=== PATIENT | female | born 1945 | race Two or more races ===

== ENCOUNTER 2025-05-11 11:42 | Emergency (ER) | payer OTHER ==
[~2025-05-11] VITALS: Ht 165.1 cm; Wt 64.9 kg
[~2025-05-11 11:42] MED LIST: AVAPRO150 MG PO; LOPRESSOR25 MG PO; NABUMETONE500 MG PO; PERCOCET 5/3251 TAB PO; SYNTHROID50 MCG PO
[2025-05-11] MEDS ORDERED: AMLODIPINE BESYL5 MG (11:57)
[2025-05-11] MEDS ORDERED: MYRBETRIQ50 MG (11:58)
[2025-05-11] MEDS ORDERED: ESTRADIOL10 MCG (11:58)
[2025-05-11 12:46] LABS: BASO % 0.4 % (0.1-1.2); EOS # 0.02 (0.04-0.54); EOS % 0.2 % (0.7-7.0); LYMPH # 1.80 (1.18-3.74); LYMPH % 19.4 % (19.3-53.1); MEAN PLATELET VOLUME 11.60 fl (9.4-12.4); MONO # 0.81 (0.24-0.82); MONO % 8.7 % (4.7-12.5); NEUT # 6.57 (1.56-6.13); NEUT % 71.1 % (34.0-71.1); RED CELL DISTRIBUTION WIDTH 14.2 % (11.6-14.4)
[2025-05-11 13:20] LABS: ALT/SGPT 25 U/L (12-78); AST/SGOT 18 U/L (15-37); BILIRUBIN TOTAL 1.19 mg/dL (0.3-1.2); BUN CREA RATIO 21 (7.0-25.0); CREATININE SERUM 0.68 mg/dL (0.55-1.02); GFR 83.47; GLOBULINA 3.4 G/DL (2.4-3.5); GLUCOSE FASTING 105 mg/dL (65-100); OSMOLALITY SERUM 284 MOSM/KG (275-295)
[2025-05-11 13:35] LABS: URINE APPEARANCE Clear; URINE BILIRRUBIN Negative (NEGATIVE); URINE BLOOD Small; URINE COLOR Yellow; URINE GLUCOSE Negative (NEGATIVE); URINE KETONE 15 (NEGATIVE); URINE LEUKOCYTE Trace; URINE NITRATE Negative; URINE PROTEIN 30 (NEGATIVE); URINE UROBILINOGEN 0.2 E.U./dl
[2025-05-11 13:41] LABS: URINE BACTERIA 88.7 uL (0.0-1933); URINE EPITHELIAL CELLS 16.6 uL (0.0-38.8); URINE RBC 30.9 uL (0.0-20.8); URINE WBC 24.4 uL (0.0-23.2)
[2025-05-11 13:46] LABS: URINE CAST 0.00 uL (0.0-1.40)
== END 2025-05-11 17:10 | disposition home or self-care (01) ==
LOC: ER 11:43
PROVIDERS: Physician Assistant Medical
DX: M25.512 Pain in left shoulder (principal); I10 Essential (primary) hypertension; E03.8 Other specified hypothyroidism; E78.00 Pure hypercholesterolemia, unspecified; I87.2 Venous insufficiency (chronic) (peripheral); Z91.040 Latex allergy status